=== PATIENT | male | born 1945 | race Caucasian/White ===

== ENCOUNTER 2017-06-07 09:49 | Inpatient (IN) ==
[2017-06-07] MEDS ORDERED: Albuterol 2.5 MG/3 ML NEBULIZER IH ONE (10:06)
[2017-06-07] MEDS ORDERED: Ringers Solution, Lactated 1,000 ML IVC SCH (10:15)
[2017-06-07] MEDS ORDERED: Albuterol 2.5 MG/3 ML NEBULIZER ONE (10:16)
--- NOTE | 2017-06-07 10:30 | Anesthesia Evaluation PreOp ---
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 Has continued to occur intermittently) Other Medical History: Diabetes Type II, GERD Anesthesia History: No Prior Anesthetic Complications Alcohol Use: none Drug use: none Medications and Allergies Ibuprofen [Motrin] 800 mg PO Q8HR PRN 05/10/16 [History] Simvastatin [Zocor] 40 mg PO HS 05/10/16 [History] Aspirin [Lo-Dose Aspirin EC] 81 mg PO DAILY 06/02/17 [History] Ranitidine HCl [Acid Heel Seat Flap Stapler] 150 mg PO DAILY PRN 06/02/17 [History] Tamsulosin [Flomax] 0.8 mg PO HS 06/02/17 [History] Metformin HCl [Fortamet] 2,000 mg PO DAILY 06/07/17 [History] 3 Allergy/AdvReac Type Severity Reaction Status Date / Time Penicillins Allergy Hives Verified 06/07/17 10:28 - Meds/Allergy Pre-op Review Medications Reviewed: Yes Allergies Reviewed: Yes Beta Blockers on Current Med List: No Anesthesia Results - Labs Laboratory Tests 06/01/17 06/01/17 06/01/17 14:29 14:29 14:29 Hgb 17.1 H Hct 50.8 H Plt Count 156 PT 10.6 INR 1.0 APTT 29.0 Sodium 140 Potassium 4.2 Chloride 105 Carbon Dioxide 25 BUN 24 Creatinine 1.17 Est GFR (Non-Af Amer) > 60 Glucose 97 - Imaging EKG: report reviewed, other (SINUS RHYTHM LEFT ANTERIOR FASCICULAR BLOCK) Additional studies: impressions: 05/2017 Findings: Left proximal ICA has a critical, 80-99% stenosis. Findings: Right proximal ICA has a moderate, 40-59% stenosis. 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
[2017-06-07] MEDS ORDERED: Famotidine 20 MG/2 ML VIAL IVP ONE (10:48)
[2017-06-07] MEDS ORDERED: Acetaminophen IV 1,000 MG/100 ML INFUS..BTL IVPB ONE (10:49)
[2017-06-07] MEDS ORDERED: Ketorolac 30 MG/ML VIAL ONE (11:06)
[2017-06-07] MEDS ORDERED: *HR* Rocuronium Bromide 50 MG/5 ML VIAL ONE (11:06)
[2017-06-07] MEDS ORDERED: *HR* FentaNYL (PF) 100 MCG/2 ML VIAL ONE (11:06)
[2017-06-07] MEDS ORDERED: Lidocaine -MPF 2% 2 ML VIAL ONE ×2 (11:06→11:12)
[2017-06-07] MEDS ORDERED: Dexamethasone 4 MG/ML VIAL ONE ×2 (11:06→15:32)
[2017-06-07] MEDS ORDERED: *HR* Midazolam HCl 2 MG/2 ML VIAL ONE (11:07)
[2017-06-07] MEDS ORDERED: *HR* Succinylcholine 200 MG/10 ML VIAL IVP ONE (11:07)
[2017-06-07] MEDS ORDERED: *HR* Propofol 200 MG/20 ML VIAL IVP ONE (11:07)
[2017-06-07] MEDS ORDERED: Heparin 1,000 UNITS/500 mL NS 500 ML ONE ×2 (11:07→11:38)
[2017-06-07] MEDS ORDERED: Lidocaine 1% 20 ML MDV ONE (11:38)
[2017-06-07] MEDS ORDERED: CeFAZolin Syr 2,000MG/20 ML 2,000 MG/20 ML SYRINGE IVPB ONE (12:34)
--- NOTE | 2017-06-07 12:38 | History & Physical Report ---
Date of Encounter: 06/07/17 Time of Encounter: 12:37 24 Hour HP Update - Instructions Instructions: If the History and Physical is less than 30 days old and was completed prior to A.M. admission and or procedure and has NOT been updated on calendar day of procedure please complete this update prior to performing procedure. - Update Patient reports changes in Medical Condition: No Changes in examination, assessment, or condition: No Changes in Medication: No Preop tests/diagnostics Reviewed: Yes Surgery Remains Indicated: Yes Consent for Planned Operative Procedure(s) Verified: Yes - Pre-Operative Checklist Preoperative Checklist Indicated: Yes Prophylactic Antibiotic Ordered: Yes Home Medications Include Beta Echo: No Beta Echo Taken Today (Day of Surgery): No Beta Echo Taken Yesterday (Day Prior to Surgery): No Is VTE Prophylaxis Indicated?: Yes
--- NOTE | 2017-06-07 13:24 | Operative Note ---
Date of procedure: 06/07/17 Pre-op diagnosis: left carotid stenosis/TIA Post-op diagnosis: same Procedure: left carotid endarterectomy with 8 Fr shunt and Hemashield patch angioplasty Complications: none Anesthesia: NAIFA Surgeon: Rojelio Rico Estimated blood loss (cc): 100 Specimen: none Condition: stable Disposition: PACU Procedure in Detail: History Mr. Encarnacion is a 72-year-old white male with a history of TIAs. A carotid duplex and was performed which was abnormal demonstrating a high-grade left internal carotid artery stenosis. He underwent an angiogram which confirmed this diagnosis and showed a very irregular and critically stenotic plaque in the proximal left internal carotid artery. He now comes to surgery for this lesion. Procedure After informed consent was obtained the patient was taken to the operating room. General endotracheal anesthesia was established under arterial line pressure. The left neck was then sterilely prepped and draped. A timeout protocol was observed. An oblique incision was then made parallel to the anterior border of the left sternocleidomastoid muscle. Dissection was carried down to enter the carotid sheath. The carotid sheath was opened. The nervous structures were identified and preserved. Selective control was then obtained of the carotid vessels. 5000 units of heparin was administered intravenously. After 3 minute delay the vessels were clamped with the internal carotid artery clamped first. Using an 11 blade knife and Toussaint scissors an arteriotomy was performed beginning on the distal aspect of the left common carotid artery and extending up into the internal carotid artery. An 8 Persian shunt was then inserted atraumatically. Patency of the shunt was confirmed using intraoperative Doppler. Evaluation of the plaque revealed a high-grade and critical stenosis as demonstrated on the angiogram. The plaque had multiple areas of ulceration though there were no findings of acute thrombus or dissection in the vessel wall. The endarterectomy was then begun at the distal aspect of the common carotid artery. The dissection was carried circumferentially both proximally and distally. The orifice of the superior thyroid and external carotid artery were endarterectomized. The endpoint on the internal carotid artery was high and required application of a Perico shunt clamp and extension of the arteriotomy more distally. This allowed full view then finally at the level of the hypoglossal nerve as to the endpoint of the plaque. The endpoint was smooth and no tacking sutures were necessary. The bed of the vessels and carefully inspected. The patch angioplasty was then performed using 6-0 Prolene suture. Leaving a small space open on the closure line the shunt was clamped and divided and removed. The final few sutures were then placed. After appropriate backbleeding and flushing the clamps were removed with the internal carotid artery clamp removed last. Excellent pulsatile flow was observed. Hemostasis was then achieved. A superficial cervical block using half percent Marcaine was performed. The wound was then irrigated with antibiotic-containing solution. The wound was closed in layers with absorbable suture. A dry sterile dressing was applied. The patient was extubated in the operating room. He was found to be neurologically intact. The patient was then transported to the recovery room in stable condition.
[2017-06-07] MEDS ORDERED: EPHEDrine 50 MG/ML VIAL ONE (13:32)
[2017-06-07] MEDS ORDERED: *HR* Remifentanil 2 MG VIAL IVP ONE (13:44)
[2017-06-07] MEDS ORDERED: *HR* HYDROmorphone (PF) 1 MG/ML SYRINGE IVP PRN (15:13)
[2017-06-07] MEDS ORDERED: Ondansetron 4 MG/2 ML VIAL IVP PRN ×2 (15:13→16:49)
[2017-06-07] MEDS ORDERED: Albuterol 2.5 MG/3 ML NEBULIZER IH PRN (15:13)
[2017-06-07] MEDS ORDERED: Ondansetron 4 MG/2 ML VIAL ONE (15:32)
[2017-06-07] MEDS ORDERED: NiCARdipine 2.5 MG/10 ML Syringe IVPB ONE (15:37)
[2017-06-07] MEDS ORDERED: *HR* HYDROcodone/Acet 5/325 mg TABLET PO PRN (16:49)
[2017-06-07] MEDS ORDERED: Naloxone 0.4 MG/ML INJ IVP PRN (16:49)
[2017-06-07] MEDS ORDERED: Acetaminophen 325 MG TABLET PO PRN (16:49)
[2017-06-07] MEDS ORDERED: *HR* Metoprolol 5 MG/5 ML VIAL IVP PRN (16:49)
[2017-06-07] MEDS ORDERED: ceFAZolin 2,000 MG in D5% in Water 100 ML IVPB SCH (16:49)
[2017-06-07] MEDS ORDERED: Famotidine 20 MG TABLET PO PRN (16:49)
[2017-06-07] MEDS ORDERED: Ibuprofen 800 MG TABLET PO PRN (16:49)
[2017-06-07] MEDS ORDERED: *HR* Morphine 2 MG/ML SYRINGE IVP PRN ×2 (16:49)
--- NOTE | 2017-06-07 18:31 | Anesthesia Evaluation Post Op ---
Date of Encounter: 06/07/17 Time of Encounter: 16:30 - Vital Signs Vital Signs: Vital Signs Temp Pulse Resp BP Pulse Ox 06/07/17 16:28 97.1 F L 76 16 121/68 97 06/07/17 16:18 77 16 120/66 96 06/07/17 16:08 82 16 116/59 95 06/07/17 15:58 97.3 F L 85 16 126/70 96 06/07/17 10:29 97.9 F 71 18 137/74 95 Intake and Output 06/07/17 06/07/17 06/07/17 07:59 15:59 23:59 Intake Total 120 / 120 0 / 0 Output Total 100 / 100 Balance 20 / 20 0 / 0 Intake: IV Fluids 120 / 120 Ofirmev 1,000 mg/100 ml 1,000 100 / 100 mg In 100 ml @ 400 mls/hr IVPB ONCE ONE Rx#:[id number] Ancef Syringe 2,000 MG/20 ML 2, 20 / 20 000 mg In 20 ml @ 200 mls/hr IVPB PREOP ONE Rx#:[id number] Oral 0 / 0 Output: Estimated Blood Loss 100 / 100 Other: Weight 90.265 kg Blood Glucose* 180 132 Patient Weight 06/07/17 23:59 Weight 90.265 kg - Lungs Lungs: Clear Ascult./Percussion - Airway Airway: Non-obstructed - Cardiovascular Regular Rate - Mental Status Mental Status: Alert & Oriented, Answers Appropriately - Pain Pain Scale: 0 Pain Scale used: Numeric (1 - 10) - Nausea Vomiting Nausea Vomiting: Not Present - Hydration Hydration: Ice chips, Torrez catheter - Discharge PostOp Status: Transfer Patient to floor Anes Supervising Prov Stmt: Pt seen/evaluated, VSS and pt has met criteria for discharge to floor. - MD Cristy
[2017-06-07] MEDS ORDERED: Water for inj. (sterile) 20 ML IV ONE (21:10)
[2017-06-07] MEDS: ceFAZolin 2,000 MG in Water for inj. (sterile) 20 ML IVP SCH (21:14)
[2017-06-08 04:33] LABS: Basophils % 0.1 %; Hemoglobin 15.6 g/dL (12.9-16.9); Immature Granulocytes % 0.4 % (0-4); Lymphocytes # 0.9 K/mcL (0.6-4.6); Lymphocytes % 8.1 %; Mean Corpuscular HGB Conc 33.2 g/dL (31.6-35.5); Mean Corpuscular Hemoglobin 30.8 pg (28.0-33.3); Mean Corpuscular Volume 92.9 fL (83.0-100.0); Mean Platelet Volume 9.5 fL (9.4-12.4); Monocytes # 0.3 K/mcL (0.0-1.3); Monocytes % 2.9 %; Neutrophils # 9.9 K/mcL (1.6-8.9); Platelet Count 150 K/mcL (140-400); Red Blood Count 5.06 M/mcL (4.19-5.50); Red Cell Distribution Width 12.6 % (11.5-14.5); Segmented Neutrophils % 88.5 %
[2017-06-08 04:47] LABS: BUN/Creatinine Ratio 18 (6-26); Blood Urea Nitrogen 16 mg/dL (8-26); Calcium 8.7 mg/dL (8.6-10.8); Carbon Dioxide 23 mEq/L (19-29); Chloride 104 mEq/L (98-109); Glucose 215 mg/dL (70-99); Osmolality,Calculated 288 (280-300); Potassium 4.8 mEq/L (3.5-4.5); Sodium 135 mEq/L (136-145); eGFR For African Americans > 60 (> 60); eGFR For Non-African Americans > 60 (> 60)
[2017-06-08] MEDS: ceFAZolin 2,000 MG in Water for inj. (sterile) 20 ML IVP SCH ×2 (05:13→12:11)
[2017-06-08] MEDS ORDERED: Aspirin Enteric Coated 81 MG Tablet PO SCH (09:00)
[2017-06-08] MEDS ORDERED: *HR* Metformin 500 MG TABLET PO SCH (09:00)
[2017-06-08 11:10] VITALS: BP 122/61
--- NOTE | 2017-06-08 11:41 | Discharge Summary ---
Date of Encounter: 06/08/17 Time of Encounter: 11:38 - Discharge Diagnosis (1) Carotid stenosis, left Priority: Primary Status: Acute Comments: Patient is a 72-year-old white male that had TIAs. This led to duplex scan which is abnormal. A antrum was obtained which confirmed the diagnosis of a high -grade left internal carotid artery stenosis. 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 insulin use: without terminal gauger supervisor use Qualified Code(s): E11.59 - Type 2 diabetes mellitus with other circulatory complications (3) Hyperlipidemia associated with type 2 diabetes mellitus Priority: Secondary Status: Chronic Comments: Patient under medical treatment - Discharge Medications Home Medications: Ibuprofen [Motrin] 800 mg PO Q8HR PRN 05/10/16 [History] Simvastatin [Zocor] 40 mg PO HS 05/10/16 [History] Aspirin [Lo-Dose Aspirin EC] 81 mg PO DAILY 06/02/17 [History] Ranitidine HCl [Acid Optical Effects Line Up Person] 150 mg PO DAILY PRN 06/02/17 [History] Tamsulosin [Flomax] 0.8 mg PO HS 06/02/17 [History] Metformin HCl [Fortamet] 2,000 mg PO DAILY 06/07/17 [History] Allergies/Adverse Reactions: 3 Allergy/AdvReac Type Severity Reaction Status Date / Time Penicillins Allergy Hives Verified 06/07/17 10:28 Date of admission: 06/07/17 16:45 Primary care physician: Jaden Barahona MD Consults: None Procedure(s) Performed: Left carotid endarterectomy with patch angioplasty Discharging clinician: Rojelio Rico Anticipated date of discharge: 06/08/17 - Patient Status Disposition: Home, Self-Care Condition: Good Functional capacity at discharge: independent ambulation Overall status at discharge: patient is progressing back to baseline - Discharge Instructions Follow Up With: Madalyn Bowens CNP [Advanced Practice Nurse] - 06/13/17 11:00 am Rojelio Rico MD [Partnered Physician] - 06/28/17 9:45 am Additional Instructions: Keep the left neck incision dry for 5 days following surgery No lifting greater than 10 pounds. No automobile driving area no manual labor. Resume usual home medications. Use ice pack on the left neck for the next 3-4 days. Use incentive spirometer 10 times an hour while awake for the next 2 weeks. Encourage patient to ambulate both inside and out as tolerated. - Diet and Activity Activity: increase activity as tolerated Diet: diabetic diet - Hospital Course Hospital course: Mr. Encarnacion is a 72 year old male With symptomatic left internal carotid artery stenosis. Patient had confirmatory testing and none was recommended to undergo urgent carotid endarterectomy. The patient was admitted for this procedure. He was taken to the operating room on the day of admission and underwent a left carotid endarterectomy under general endotracheal anesthesia. Patient was found to have a very high-grade and critical stenosis with multiple areas of ulcerations. The patient tolerated the procedure well. There were no periprocedural complications. The patient awoke from anesthesia and was neurologically intact. He had an uneventful postoperative day 0 evening. On the morning of postoperative day #1 he was awake and alert. He was felt fit for discharge. The patient will be discharged to home today. - Time Spent with Patient Total time spent providing and/or coordinating discharge services: Exam Vital Signs, Last 4 Hours Temp Pulse Resp BP Pulse Ox 06/08/17 11:08 97.7 F 63 16 122/61 95 06/08/17 07:54 59 06/08/17 07:47 98.4 F 63 12 118/70 95 General: Present: Conversant, No Apparent Distress, Well developed, Well nourished HEENT: Present: Atraumatic, Normocephaly, Trachea midline Neck: Absent: JVD Cardiac: Present: Reg Rate and Rhythm, Normal S1 and S2 Lungs: Present: Normal Breath Sounds Neuro: Present: Alert and responsive, No focal deficits noted, Cranial nerves grossly intact, Motor nerves grossly intact, Sensory nerves grossly intact Abdomen: Present: Soft, Non-tender Vascular: Present: Surgical incisions (Left neck incision is clean and dry) - VTE Documentation of Mechanical Device: Intermittent pneumatic compression device
== END 2017-06-08 12:55 | disposition home or self-care (01) | DRG 39 ==
LOC: SAMDAY 09:49 → 2NNU 16:45
PROVIDERS: ADMIT Surgery Vascular Surgery; ATTEND Surgery Vascular Surgery

== ENCOUNTER 2022-01-11 06:01 | Inpatient (IN) ==
[2022-01-11] MEDS ORDERED: CeFAZolin Syr 2,000MG/20 ML 2,000 MG/20 ML SYRINGE IVPB ONE (06:27)
[2022-01-11] MEDS ORDERED: Ringers Solution, Lactated 1,000 ML IVC SCH (06:30)
[2022-01-11] MEDS ORDERED: *HR* Propofol 200 MG/20 ML VIAL IVP ONE (07:12)
[2022-01-11] MEDS ORDERED: *HR* Rocuronium Bromide 50 MG/5 ML VIAL ONE ×2 (07:12→08:32)
[2022-01-11] MEDS ORDERED: Ondansetron 4 MG/2 ML VIAL ONE (07:12)
[2022-01-11] MEDS ORDERED: *HR* Succinylcholine 200 MG/10 ML VIAL IVP ONE (07:12)
[2022-01-11] MEDS ORDERED: Lidocaine -MPF 2% 2 ML VIAL ONE (07:12)
[2022-01-11] MEDS ORDERED: Heparin 1,000 UNITS/500 mL 500 ML ONE (07:12)
[2022-01-11] MEDS ORDERED: Protamine Sulfate 50 MG/5 ML VIAL IVP ONE (07:12)
[2022-01-11] MEDS ORDERED: *HR* FentaNYL (PF) 100 MCG/2 ML VIAL ONE ×2 (07:12→08:40)
[2022-01-11] MEDS ORDERED: *HR* Phenylephrine 10 MG/ML VIAL ONE (07:13)
[2022-01-11] MEDS ORDERED: EPINEPHrine 1 MG/ML VIAL ONE (07:13)
[2022-01-11] MEDS ORDERED: *HR* OxyCODONE Immed Rel 5 MG TABLET PO PRN (07:16)
[2022-01-11] MEDS ORDERED: *HR* Labetalol 20 MG/4 ML SYRINGE IVP PRN ×2 (07:16→12:15)
[2022-01-11] MEDS ORDERED: Famotidine 20 MG/2 ML VIAL IVP ONE (07:16)
[2022-01-11] MEDS ORDERED: *HR* HYDROmorphone PF 0.5 MG/0.5 ML SYRINGE IVP PRN (07:16)
[2022-01-11] MEDS ORDERED: Acetaminophen IV 1,000 MG/100 ML BAG IVPB ONE (07:16)
[2022-01-11] MEDS ORDERED: Ondansetron 4 MG/2 ML VIAL IVP PRN ×2 (07:16→12:15)
[2022-01-11] MEDS ORDERED: *HR* HYDROmorphone 2 MG TABLET PO PRN (07:16)
[2022-01-11] MEDS ORDERED: NiCARdipine 2.5 MG/10 ML Syringe IVPB ONE (07:29)
[2022-01-11] MEDS ORDERED: Ipratropium/Albuterol Neb 3 ML IH ONE (07:30)
[2022-01-11] MEDS ORDERED: ceFAZolin 1,000 MG, Sodium Chloride IRRigation 1,000 ML IR ONE (07:45)
[2022-01-11] MEDS ORDERED: EPHEDrine 50 MG/ML VIAL ONE (08:40)
[2022-01-11] MEDS ORDERED: *HR* Heparin 5,000 UNIT/ML VIAL ONE (08:55)
[2022-01-11] MEDS ORDERED: Sugammadex Sodium 200 MG/2 ML VIAL IV ONE (10:14)
[2022-01-11] MEDS ORDERED: Ibuprofen 800 MG TABLET PO PRN (12:15)
[2022-01-11] MEDS ORDERED: Naloxone 0.4 MG/ML INJ IVP PRN (12:15)
[2022-01-11] MEDS ORDERED: *HR* HYDROcodone/Acet 5/325 mg TABLET PO PRN (12:15)
[2022-01-11] MEDS ORDERED: Acetaminophen 325 MG TABLET PO PRN (12:15)
[2022-01-11] MEDS: CeFAZolin 2 GM/120 ML BAG IVPB SCH ×2 (17:25→23:52)
[2022-01-12 07:33] VITALS: TEMP 98.2
[2022-01-12 07:38] LABS: Basophils % 0.2 %; Eosinophils # 0.1 K/mcL (0.0-0.6); Eosinophils % 0.9 %; Hematocrit 42.7 % (37.5-50.1); Hemoglobin 13.3 g/dL (12.9-16.9); Immature Granulocytes % 0.5 % (0-4); Lymphocytes # 2.1 K/mcL (0.6-4.6); Lymphocytes % 21.2 %; Mean Corpuscular HGB Conc 31.1 g/dL (31.6-35.5); Mean Corpuscular Hemoglobin 31.1 pg (28.0-33.3); Mean Corpuscular Volume 99.8 fL (83.0-100.0); Mean Platelet Volume 9.9 fL (9.4-12.4); Monocytes # 0.9 K/mcL (0.0-1.3); Monocytes % 8.8 %; Neutrophils # 6.9 K/mcL (1.6-8.9); Platelet Count 151 K/mcL (140-400); Red Blood Count 4.28 M/mcL (4.19-5.50); Red Cell Distribution Width 13.7 % (11.5-14.5); Segmented Neutrophils % 68.4 %; White Blood Count 10.1 K/mcL (4.3-11.1)
[2022-01-12 07:40] LABS: BUN/Creatinine Ratio 17 (6-26); Blood Urea Nitrogen 16 mg/dL (8-23); Calcium 8.5 mg/dL (8.6-10.3); Carbon Dioxide 29 mEq/L (23-29); Chloride 103 mEq/L (98-107); Glucose 139 mg/dL (70-105); Osmolality,Calculated 285 (280-300); Potassium 4.5 mEq/L (3.5-5.1); Sodium 136 mEq/L (136-145); eGFR For African Americans > 60 (> 60); eGFR For Non-African Americans > 60 (> 60)
[2022-01-12] MEDS: CeFAZolin 2 GM/120 ML BAG IVPB SCH (08:04)
[2022-01-12] MEDS ORDERED: Finasteride 5 MG TABLET PO SCH (09:00)
[2022-01-12] MEDS ORDERED: Aspirin Enteric Coated 81 MG Tablet PO SCH (09:00)
[2022-01-12] MEDS ORDERED: *HR* Metformin 500 MG TABLET PO SCH (09:00)
[2022-01-12] MEDS ORDERED: *HR* Pioglitazone 45 MG TABLET PO SCH (09:00)
[2022-01-12 10:16] VITALS: BP 124/49; PULSE 58; O2SAT 91
== END 2022-01-12 12:15 | disposition home or self-care (01) | DRG 39 ==
LOC: SAMDAY 06:01 → 2NNU 12:12
PROVIDERS: ADMIT Surgery Vascular Surgery; ATTEND Surgery Vascular Surgery